=== PATIENT | male | born 1990 | race Caucasian/White ===

== ENCOUNTER 2017-01-29 09:49 | Day surgery (SDC) | payer OTHER ==
[2017-01-29] VITALS (18 sets, daily range): BP systolic 88–138; BP diastolic 48–84; PULSE 50–78; RESP 14–20; Ht 180.3 cm; Wt 62.0 kg
[~2017-01-29] VITALS: Ht 180.3 cm; Wt 62.0 kg
--- NOTE | 2017-01-29 11:59 | HPN ---
Date/Time of Note Date/Time of Note DATE: 01/29/17 TIME: 11:59 Interval H&P Admission Note Pt. seen H&P reviewed: No system changes REGGIE ROMERO Jan 29, 2017 11:59
[2017-01-29] MEDS ORDERED: POLYMYXIN/BACITRACIN 1L IRRIG ONE (12:05)
[2017-01-29] MEDS ORDERED: BUPIVACAINE 0.5% (SDV) 30 ML INJ ONE (12:05)
[2017-01-29] MEDS ORDERED: LIDOCAINE 1% (MPF) 30 ML INJ ONE (12:05)
[2017-01-29] MEDS ORDERED: MIDAZOLAM 1 MG/ML 2 ML INJ ONE ×2 (12:14→12:25)
[2017-01-29] MEDS ORDERED: FENTAnyl 50 MCG/ML VIAL ONE (12:14)
[2017-01-29] MEDS ORDERED: PROPOFOL 20 ML ONE (12:14)
[2017-01-29] MEDS ORDERED: ROPIVACAINE 0.5 % 30 ML VIAL ONE (12:15)
[2017-01-29] MEDS ORDERED: ONDANSETRON 4 MG INJ ONE (13:38)
[2017-01-29] MEDS ORDERED: METOCLOPRAMIDE 10 MG INJ ONE (13:38)
[2017-01-29] MEDS ORDERED: ACETAMINOPHEN 1000MG/100ML IV 100 ML ONE (13:38)
[2017-01-29] MEDS ORDERED: KETOROLAC 30 MG INJ ONE (13:38)
[2017-01-29] MEDS ORDERED: DEXAMETHASONE 4 MG/ML 1 ML INJ ONE (13:38)
[2017-01-29] MEDS ORDERED: MEPERIDINE 100 MG INJ ONE (13:59)
[2017-01-29] MEDS ORDERED: OXYCODONE/ACETAMINOPHEN (5/325) TAB PO PRN ×2 (14:00)
[2017-01-29] MEDS ORDERED: EPHEDrine SULFATE 50 MG/5 ML SYG IV PRN (14:00)
[2017-01-29] MEDS ORDERED: morphine (1 MG/ML) 10ML SYRINGE IV PRN ×3 (14:00)
[2017-01-29] MEDS ORDERED: ONDANSETRON 4 MG INJ IV PRN (14:00)
[2017-01-29] MEDS ORDERED: METOCLOPRAMIDE 10 MG INJ IV PRN (14:00)
[2017-01-29] MEDS ORDERED: HYDROmorphONE (0.2 MG/ML) 10ML SYG IV PRN ×3 (14:00)
[2017-01-29] MEDS ORDERED: MEPERIDINE 25 MG INJ IV PRN (14:00)
[2017-01-29] MEDS ORDERED: DIPHENHYDRAMINE 50 MG INJ IV PRN (14:00)
[2017-01-29] MEDS ORDERED: HYDROCODONE/APAP (5/325) TAB PO PRN (14:36)
[2017-01-29] MEDS ORDERED: LACTATED RINGER'S 1,000 ML IV* SCH (16:00)
--- NOTE | 2017-01-29 16:36 | OPR ---
DATE OF OPERATION: 01/29/2017 ANESTHESIA: General plus regional block. PREOPERATIVE DIAGNOSES: 1. Right distal radius fracture, intra-articular, greater than 3 fragments. 2. 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 POSTOPERATIVE DIAGNOSES: 1. Right distal radius fracture, intraarticular, greater than 3 fragments. 2. 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 PROCEDURE: 1. Open reduction internal fixation of right distal radius fracture, intra- articular, greater than 3 fragments. 2. Right carpal tunnel release, open. OPERATIVE FINDINGS: 1. Comminuted intra-articular distal radius fracture with central joint depression and joint gapping with early callus formation requiring mobilization of the fracture and reestablishing the fracture lines. 12 Swelling within the carpal canal and median nerve compression. INDICATION FOR PROCEDURE: This is a 26-year-old male with right wrist injury. He was seen in clinic and diagnosed with a displaced intraarticular right distal radius fracture. I had concern for central joint depression and a CT scan was obtained which showed a central joint depression and joint gapping. Displacement was on the order of 2 to 4 mm total and options were discussed with the patient and he elected to proceed with surgery. He also complained of intermittent numbness within the right hand and decision was made for carpal tunnel release at the same time. The patient elected to proceed, understanding the risks and benefits. DESCRIPTION OF PROCEDURE: The patient was seen in the preoperative area and all further questions were answered. Again, he gave informed consent, understanding the risks and benefits. He was taken to the operative suite and placed in supine position. The anesthesia team performed a peripheral nerve block at my request and per their request, elected to proceed with general anesthesia as well. Ancef 2 grams was given and the right upper extremity was prepped with ChloraPrep stick and draped in the usual sterile fashion. An Esmarch bandage was used to exsanguinate the extremity and tourniquet inflated to 250 mmHg. Attention was first turned to the distal radius fracture and a modified volar Kishor approach to the distal radius was utilized with sharp dissection carried down through skin and subcutaneous tissue. The FCR sheath was identified and was incised with the FCR tendon, retracted ulnarly. The FCR subsheath was incised and the FPL tendon retracted ulnarly. The pronator quadratus was incised along its radial and distal borders and elevated off the distal radius with the fracture site identified. There was significant callus formation at the fracture site and a freer elevator was used to reestablish the fracture lines and reduce the fracture. There was a central depression and under fluoroscopic imaging, I was able to elevate the joint depression indirectly using fluoroscopic imaging and tactile sensation. After I was pleased with the appearance of the joint surface, a [employer] distal radius plate was placed across the fracture site and a cortical screw placed in the oblong hole. Four distal row screws were placed in order to support the articular surface, and x-ray imaging confirmed appropriate hardware placement and near anatomic alignment with less than 1 mm of joint step-off. Additional cortical screws and locking screws were placed proximally and distally and final x-ray imaging showed appropriate hardware placement and near anatomic bony alignment improved from preoperative imaging. The wound was copiously irrigated and the skin closed with 3-0 nylon. Attention was then turned to the carpal tunnel release and a 2 cm incision at the base of the palm was utilized with sharp dissection carried down through skin and subcutaneous tissue. The palmar aponeurosis was identified and was incised along its ulnar border. The transverse carpal ligament was identified and incised along its ulnar border approximately 3 mm radial to the hook of the hamate. Retraction placed distally and the ligament was divided under direct visualization. Scissor dissection was used to divide the antebrachial fascia off the transverse carpal ligament proximally and the ligament was divided along its ulnar border under direct visualization. Wound was copiously irrigated and skin closed with 4-0 nylon. Xeroform was placed over the wounds followed by sterile gauze, Webril and a short arm splint. Tourniquet was deflated after 65 minutes and patient was awakened from anesthesia. He was taken to the postoperative suite in stable condition and tolerated the procedure well without complication. SPECIMENS: None. ESTIMATED BLOOD LOSS: 5 mL. SPONGE, INSTRUMENT, NEEDLE COUNTS: Correct. TOURNIQUET TIME: 65 minutes. CONDITION ON DISCHARGE: Stable. Dictated By: REGGIE CHINCHILLA/SHAYNA Conf#: [id number] DID#: [id number] BLAKE
== END 2017-01-29 16:35 | disposition home or self-care (01) ==
LOC: SDS 09:49
PROVIDERS: ATTEND Orthopaedic Surgery Hand Surgery
DX: S52.571D Other intraarticular fracture of lower end of right radius, subsequent encounter for closed fracture with routine healing (principal); S64.11XD Injury of median nerve at wrist and hand level of right arm, subsequent encounter; X58.XXXD Exposure to other specified factors, subsequent encounter; Q89.8 Other specified congenital malformations; I42.9 Cardiomyopathy, unspecified; F17.200 Nicotine dependence, unspecified, uncomplicated
CPT/HCPCS: 25608; 64721; J0131; J1100; J1885; J2175; J2250; J2405; J2765; J2795; J3010

== ENCOUNTER 2018-02-04 12:08 | Day surgery (SDC) | END 2018-02-04 17:15 | disposition home or self-care (01) ==